=== PATIENT | female | born 1940 ===

== ENCOUNTER 2019-08-04 14:24 | Emergency (ER) | payer OTHER ==
[2019-08-04 15:07] LABS: Absolute Lymphocytes (CBC) 1.9 K/uL (0.7-4.9); Basophils % 0.4 % (0-1.3); Hematocrit 38.1 % (36.0-45.0); Lymphocytes % 28.4 % (15.3-44.8); MPV 7.6 fL (7.6-11.3); RBC Red Blood Cell Count 4.22 M/uL (3.86-4.86)
[2019-08-04 15:12] LABS: Protime INR 0.95
--- NOTE | 2019-08-04 15:16 | RAD REPORT ---
EXAM DESCRIPTION: CT - Head Brain Wo Cont - 08/04/2019 3:00 pm CLINICAL HISTORY: diplopia COMPARISON: None TECHNIQUE: Computed axial tomography of the head was obtained. IV contrast was not requested. All CT scans are performed using dose optimization technique as appropriate and may include automated exposure control or mA/KV adjustment according to patient size. FINDINGS: An intracranial bleed is not seen . The ventricles are normal in caliber. No extra-axial fluid collection is noted. Mild low-density areas within periventricular, deep and subcortical white matter likely represent isc hemic changes secondary to small vessel disease. Fluid within the sinuses/ mastoids is not seen. IMPRESSION: No acute intracranial abnormality is seen. If patient's symptoms persist MRI of the bra in would be recommended.
[2019-08-04 15:21] LABS: Magnesium 2.3 mg/dL (1.8-2.4); Potassium 3.8 mmol/L (3.5-5.1)
--- NOTE | 2019-08-04 16:31 | RAD REPORT ---
EXAM DESCRIPTION: Susanna Angio08/04/2019 4:02 pm CLINICAL HISTORY: Diplopia COMPARISON: None TECHNIQUE: 50 cc Isovue 370 was administered intravenously. 3D MIP reconstruction performed All CT scans are performed using dose optimization technique as appropriate and may include automated exposure control or mA/KV adjustment according to patient size. FINDINGS: Mild plaque is present within the carotid bulbs bilaterally. The common and external carot id arteries are unremarkable. Internal carotid arteries are unremarkable. The vertebral arteries are codominant. No aneurysm No significant stenosis IMPRESSION: Mild plaque within the carotid bulbs NASCET criteria used. Mild 0-49% stenosis Moderate 50-69% stenosis Severe 70-99% stenosis
--- NOTE | 2019-08-04 16:38 | RAD REPORT ---
EXAM DESCRIPTION: CTHead angio08/04/2019 4:02 pm CLINICAL HISTORY: Diplopia COMPARISON: None TECHNIQUE: CT angiogram of the head was obtained. 3D MIPS reconstruction performed. All CT scans are performed using dose optimization technique as appropriate and may include automated exposure control or mA/KV adjustment according to patient size. FINDINGS: The basilar, internal carotid, anterior cerebral, middle cerebral and left posterior cereb ral arteries are normal caliber. Mild narrowing involves the P1 segment the right posterior cerebral artery which probably is chronic An aneurysm is not seen. Mild calcified plaque is present within the distal internal carotid arteries bilaterally A significant stenosis is not noted. IMPRESSION: No acute abnormality displayed
--- NOTE | 2019-08-04 16:53 | ER ---
Nurse's Notes [facility] Name: Anisha Rodriguez Age: 78 yrs Sex: Female : 1940 Arrival Date: 08/04/2019 Time: 14:25 Bed 25 [facility] MD: Diagnosis: Diplopia Presentation: 08/04 14:28 Presenting complaint: Double vision x 4 days. Denies dizziness/headache. VAN NEGATIVE. hb Transition of care: patient was not received from another setting of care. Onset of symptoms was August 01, 2019. Risk Assessment: Do you want to hurt yourself or someone else? Patient reports no desire to harm self or others. Initial Sepsis Screen: Does the patient meet any 2 criteria? No. Patient's initial sepsis screen is negative. Does the patient have a suspected source of infection? No. Patient's initial sepsis screen is negative. Care prior to arrival: None. 14:28 Method Of Arrival: Ambulatory hb 14:28 Acuity: ANDRES 3 hb Historical: - Allergies: 14:30 Macrobid; hb - Home Meds: 14:30 meclizine 25 mg Oral tab [Active]; hb - Immunization history:: Adult Immunizations up to date. - Social history:: Smoking status: Patient/guardian denies using tobacco. - Ebola Screening: : No symptoms or risks identified at this time. - Family history:: not pertinent. - Hospitalizations: : No recent hospitalization is reported. Screenin:47 Abuse screen: Denies threats or abuse. Denies injuries from another. Nutritional mg2 screening: No deficits noted. Tuberculosis screening: No symptoms or risk factors identified. Fall Risk None identified. Assessment: 15:12 General: Appears in no apparent distress. comfortable, Behavior is calm, cooperative. mg2 Pain: Denies pain. Neuro: Level of Consciousness is awake, alert, obeys commands, Oriented to person, place, time, situation. Neuro: Reports double vision. Cardiovascular: Capillary refill < 3 seconds Patient's skin is warm and dry. Respiratory: Airway is patent Respiratory effort is even, unlabored, Respiratory pattern is regular, symmetrical. GI: No signs and/or symptoms were reported involving the gastrointestinal system. : No signs and/or symptoms were reported regarding the genitourinary system. EENT: No signs and/or symptoms were reported regarding the EENT system. Derm: Skin is intact, is healthy with good turgor, Skin is pink, warm \T\ dry. normal. Musculoskeletal: Circulation, motion, and sensation intact. Capillary refill < 3 seconds. 16:45 Reassessment: Patient appears in no apparent distress at this time. Patient and/or mg2 family updated on plan of care and expected duration. Pain level reassessed. Patient is alert, oriented x 3, equal unlabored respirations, skin warm/dry/pink. Vital Signs: 14:30 BP 146 / 71; Pulse 78; Resp 16; Temp 97.8; Pulse Ox 100% on R/A; Weight 59.87 kg; hb Height 5 ft. 3 in. (160.02 cm); Pain 0/10; 16:45 Pulse 81; Resp 18; Pulse Ox 97% on R/A; mg2 16:47 BP 165 / 75; mg2 17:25 BP 150 / 77; Pulse 79; Resp 18; Temp 98; Pulse Ox 100% on R/A; mg2 14:30 Body Mass Index 23.38 (59.87 kg, 160.02 cm) hb ED Course: 14:25 Patient arrived in ED. as 14:29 Triage completed. hb 14:30 Arm band placed on. hb 14:32 Richard Rodriguez MD is Attending Physician. rn 14:39 Emmanuel Valle RN is Primary Nurse. mg2 14:48 Patient has correct armband on for positive identification. Door closed. mg2 14:50 No provider procedures requiring assistance completed. Patient did not have IV access mg2 during this emergency room visit. 15:01 CT Head Brain wo Cont In Process Unspecified. EDMS 16:02 CT Head Angio In Process Unspecified. EDMS 16:02 CT completed. Patient tolerated procedure well. Patient moved back from CT. mw3 16:03 CT Neck Angio In Process Unspecified. EDMS 16:15 CT completed. Patient tolerated procedure well. Patient moved to CT via wheelchair. eh Patient moved back from CT. 16:52 Ryan Ramos MD is Referral Physician. rn 16:52 Mauro Lugo MD is Referral Physician. rn Administered Medications: No medications were administered Outcome: 16:52 Discharge ordered by MD. rn 17:25 Discharged to home ambulatory, with family. mg2 17:25 Condition: stable 17:25 Discharge instructions given to patient, family, Instructed on discharge instructions, follow up and referral plans. Demonstrated understanding of instructions, follow-up care. 17:25 Patient left the ED. mg2 Signatures: Dispatcher [employer] Johnnie Morales Amelia as Nieto, Roman, MD MD rn Baxter, Heather, RN RN Emmanuel Valle RN RN [facility] [place] Lory Matos mw3
--- NOTE | 2019-08-04 16:53 | EDPHYS ---
Physician Documentation [facility] Name: Anisha Rodriguez Age: 78 yrs Sex: Female : 1940 Arrival Date: 08/04/2019 Time: 14:25 Bed 25 Private MD: ED Physician Richard Rodriguez HPI: 08/04 14:53 This 78 yrs old Unknown Female presents to ER via Ambulatory with complaints of Vision rn Problem - Double. 14:53 The patient is experiencing double vision. Onset: The symptoms/episode began/occurred 4 rn day(s) ago. Duration: the symptoms are continuous. Aggravated by nothing. Alleviated by nothing. Patient wears glasses. Severity of symptoms: At their worst the symptoms were mild in the emergency department the symptoms are unchanged. The patient has not experienced similar symptoms in the past. Reports double vision for 4 days, absent with close vision, present with far vision, no visual defects or blurred vision, wears contacts, no recent trauma or head injury. Denies other focal neurological symptoms. No speech difficulty. does report previous facial injury and fracture with mild depression of left eye. . Historical: - Allergies: 14:30 Macrobid; hb - Home Meds: 14:30 meclizine 25 mg Oral tab [Active]; hb - Immunization history:: Adult Immunizations up to date. - Social history:: Smoking status: Patient/guardian denies using tobacco. - Ebola Screening: : No symptoms or risks identified at this time. - Family history:: not pertinent. - Hospitalizations: : No recent hospitalization is reported. ROS: 14:53 Constitutional: Negative for fever, chills, and weight loss, Eyes: Negative for injury, rn pain, redness, and discharge, ENT: Negative for injury, pain, and discharge, Cardiovascular: Negative for chest pain, palpitations, and edema, Respiratory: Negative for shortness of breath, cough, wheezing, and pleuritic chest pain, Abdomen/GI: Negative for abdominal pain, nausea, vomiting, diarrhea, and constipation, MS/Extremity: Negative for injury and deformity, Skin: Negative for injury, rash, and discoloration, Neuro: Negative for headache, weakness, numbness, tingling, and seizure. Exam: 14:53 Visual Acuity: Visual acuity is within normal limits. rn 14:53 Constitutional: This is a well developed, well nourished patient who is awake, alert, and in no acute distress. Head/Face: Normocephalic, atraumatic. Eyes: Pupils equal round and reactive to light, extra-ocular motions intact. Mild correction of left eye with cover/uncover test. Lids and lashes normal. Conjunctiva and sclera are non-icteric and not injected. Cornea within normal limits. Periorbital areas with no swelling, redness, or edema. Cardiovascular: Regular rate and rhythm. No pulse deficits. Respiratory: No increased work of breathing, no retractions or nasal flaring. Abdomen/GI: soft, non-tender MS/ Extremity: Pulses equal, no cyanosis. Neurovascular intact. Full, normal range of motion. Equal circumference. Neuro: Awake and alert, GCS 15, oriented to person, place, time, and situation. Cranial nerves II-XII grossly intact. Motor strength 5/5 in all extremities. Sensory grossly intact. Cerebellar exam normal. Normal gait. Vital Signs: 14:30 BP 146 / 71; Pulse 78; Resp 16; Temp 97.8; Pulse Ox 100% on R/A; Weight 59.87 kg; hb Height 5 ft. 3 in. (160.02 cm); Pain 0/10; 16:45 Pulse 81; Resp 18; Pulse Ox 97% on R/A; mg2 16:47 BP 165 / 75; mg2 17:25 BP 150 / 77; Pulse 79; Resp 18; Temp 98; Pulse Ox 100% on R/A; mg2 14:30 Body Mass Index 23.38 (59.87 kg, 160.02 cm) hb MDM: 14:32 Patient medically screened. rn 16:41 Differential diagnosis: diplopia. rn 16:50 Data reviewed: vital signs, nurses notes, lab test result(s), radiologic studies, CT rn scan, and as a result, I will discharge patient. Counseling: I had a detailed discussion with the patient and/or guardian regarding: the historical points, exam findings, and any diagnostic results supporting the discharge/admit diagnosis, lab results, radiology results, the need for outpatient follow up, to return to the emergency department if symptoms worsen or persist or if there are any questions or concerns that arise at home. Response to treatment: There is no appreciated change of the patient's symptoms at this time, and as a result, I will discharge patient. Special discussion: I discussed with the patient/guardian in detail that at this point there is no indication for admission to the hospital. It is understood, however, that if the symptoms persist or worsen the patient needs to return immediately for re-evaluation. Further emergent ED testing is not indicated at this point in time. I discussed with the patient/guardian in detail the need to arrange with the PCP or specialist further outpatient testing, MRI, Based on the history and exam findings, there is no indication for further emergent testing or inpatient evaluation. I discussed with the patient/guardian the need to see the neurologist for further evaluation of the symptoms. I discussed with the patient/guardian the need to see the opthamologist for further evaluation of the symptoms. ED course: Pt with no acute findings on CT and ct head/neck angio, no acute findings on bloodwork. Normal neuro exam. Recommend outpt MRI brain if symptoms persist, and neuro/ophtho f/u. . 08/04 14:50 Order name: CBC with Diff; Complete Time: 15:17 08/04 14:50 Order name: Basic Metabolic Panel; Complete Time: 15:23 08/04 14:50 Order name: CT Head Brain wo Cont; Complete Time: 15:18 08/04 14:50 Order name: Protime (+inr); Complete Time: 15:17 08/04 14:50 Order name: Ptt, Activated; Complete Time: 15:17 rn 08/04 14:50 Order name: Magnesium; Complete Time: 15:23 08/04 14:50 Order name: IV Start; Complete Time: 14:58 rn 08/04 15:21 Order name: CT Head Angio; Complete Time: 16:39 rn 08/04 15:21 Order name: CT Neck Angio; Complete Time: 16:39 rn Administered Medications: No medications were administered Disposition: 08/04/19 16:52 Discharged to Home. Impression: Diplopia. - Condition is Stable. - Discharge Instructions: Diplopia. - Medication Reconciliation Form, Thank You Letter, Antibiotic Education, Prescription Opioid Use form. - Follow up: Ryan Ramos MD; When: As needed; Reason: Recheck today's complaints, Re-evaluation by your physician. Follow up: Mauro Lugo MD; When: As needed; Reason: Recheck today's complaints, Re-evaluation by your physician. - Problem is new. - Symptoms are unchanged. Signatures: Dispatcher [employer] EDMS Richard Rodriguez MD MD rn Baxter, Heather, RN RN hb Gardose, Michele, RN RN mg2 Corrections: (The following items were deleted from the chart) 17:25 16:52 08/04/2019 16:52 Discharged to Home. Impression: Diplopia. Condition is Stable. mg2 Forms are Medication Reconciliation Form, Thank You Letter, Antibiotic Education, Prescription Opioid Use. Follow up: Ryan Ramos; When: As needed; Reason: Recheck today's complaints, Re-evaluation by your physician. Follow up: Mauro Lugo; When: As needed; Reason: Recheck today's complaints, Re-evaluation by your physician. Problem is new. Symptoms are unchanged. rn
[2019-08-04 18:37] VITALS: BP 150/77; TEMP 98; O2SAT 100
== END 2019-08-04 17:25 | disposition home or self-care (01) ==
LOC: ER 14:24
DX: H53.2 Diplopia (principal); Z88.3 Allergy status to other anti-infective agents
CPT/HCPCS: 85025; 80048; 36415; 83735; 85610; 85730; 70450; 70496; 70498; 99284; Q9967